=== PATIENT | female | born 1970 ===

== ENCOUNTER 2017-11-09 10:59 | Emergency (ER) | payer SELFPAY ==
[2017-11-09 11:29] VITALS: BP 121/80
--- NOTE | 2017-11-09 12:41 | UC ---
Respiratory Complaint HPI - HPI Summary HPI Summary: 47 y/o female presents to the urgent care c/o pt states starting thu last week she began to not feel well. pt c/o eyes burning , luna and symptoms like a sinus cold. pt states she was in bed thursday and thursday began to feel better. last night pt woke up coughing. pt has a productive cough with yellow mucous. - History of Current Complaint Chief Complaint: UCRespiratory Stated Complaint: COUGH Time Seen by Provider: 11/09/17 12:38 Hx Obtained From: Patient Hx Last Menstrual Period: BEGINNING AUGUST Onset/Duration: Gradual Onset, Lasting Days - 5 days, Still Present, Worse Since - yesterday Timing: Constant Severity Initially: Mild Severity Currently: Mild Pain Intensity: 4 Pain Scale Used: 0-10 Numeric Character: Cough: Productive, Sputum Description: - yellowish Aggravating Factors: Recumbent Position Alleviating Factors: OTC Meds Associated Signs And Symptoms: Positive: URI, Nasal Congestion, Sinus Discomfort. Negative: Fever, Chills, Wheezing Related History: Seasonal Allergies - Risk Factors Pulmonary Embolism Risk Factors: Negative Cardiac Risk Factors: Negative Pseudomonas Risk Factors: Negative Tuberculosis Risk Factors: Negative - Allergies/Home Medications Allergies/Adverse Reactions: Allergies Allergy/AdvReac Type Severity Reaction Status Date / Time No Known Allergies Allergy Verified 11/09/17 11:29 Home Medications: Home Medications guaiFENesin [Mucinex] 600 mg PO 11/09/17 [History] PMH/Surg Hx/FS Hx/Imm Hx Other History Of: Negative For: HIV, Hepatitis B, Hepatitis C, Anticoagulant Therapy - Surgical History Surgical History: Yes Surgery Procedure, Year, and Place: CHOLECYSTECTOMY, 2 BACK SURGERIES ( HERNIATED DISC), TUBAL LIGATION, 4 LEG SURGERIES - Family History Known Family History: Positive: Cardiac Disease, Hypertension, Diabetes - Social History Alcohol Use: Occasionally Substance Use Type: None Smoking Status (MU): Heavy Every Day Tobacco Smoker Type: Cigarettes Amount Used/How Often: 1 PPD Physical Exam Vital Signs: Initial Vital Signs Temp 97.4 F 11/09/17 11:25 Pulse 70 11/09/17 11:25 Resp 18 11/09/17 11:25 BP 121/80 11/09/17 11:25 Pulse Ox 99 11/09/17 11:25 UC Diagnostic Evaluation - Laboratory O2 Sat by Pulse Oximetry: 99 Respiratory Course/Dx - Differential Dx/Diagnosis Differential Diagnosis/HQI/PQRI: Asthma, Bronchitis, Influenza, Laryngitis, Sinusitis Provider Diagnoses: 1- Acute bacterial sinusitis. 2-Cough Discharge - Sign-Out/Discharge Documenting (check all that apply): Patient Departure - D/C home All imaging exams completed and their final reports reviewed: No Studies - Discharge Plan Condition: Stable Disposition: HOME Prescriptions: Amoxicillin/Clavulanate TAB* [Augmentin TAB 875*] 875 mg PO BID #20 tab Fluticasone NASAL SPRAY 50MCG* [Flonase NASAL SPRAY 50MCG*] 2 spray BOTH NARES DAILY #1 btl Patient Education Materials: Sinusitis (ED) Forms: *Work Release Referrals: SCOTT Sheets [Primary Care Provider] - 3 Days Serafin Sarah MD [Medical Doctor] - 3 Days Additional Instructions: 1- Please increase fluid intake and rest. take full course of antibiotic to avoid resistance 2-Use Flonase as directed to help drain fluid. Also buy saline drops to clear sinuses 3-Continue taking Mucinex PO to alleviate cough 4-Return to the clinic or PCP 3 days if symptoms do not improve for further management and treatment 5- Please f/u w/ PRODUCTION ASSIST[facility] Dr Sarah for a screening PAP and Mammogram - Billing Disposition and Condition Condition: STABLE Disposition: Home
== END 2017-11-09 13:35 | disposition home or self-care (01) ==
LOC: UCEAST 10:59
DX: J01.90 Acute sinusitis, unspecified (principal); R05 Cough; F17.210 Nicotine dependence, cigarettes, uncomplicated
CPT/HCPCS: 99212; G0463